=== PATIENT | female | born 1995 | race Caucasian/White ===

== ENCOUNTER 2017-12-08 00:24 | Emergency (ER) | payer OTHER ==
[2017-12-08 00:25] VITALS: BP 131/96
[2017-12-08] MEDS ORDERED: ONDANSETRON 4 MG/2 ML VIAL IVP ONE (00:30)
[2017-12-08] MEDS ORDERED: NS(*) 0.9% 1000 ML BAG 1,000 ML IV ONE (00:30)
--- NOTE | 2017-12-08 00:30 | ER Report ---
History and Physical Time Seen By MD: 00:29 Hx. of Stated Complaint: PT FOUND PASSED OUT AT BAR. PT HAS HX OF DIABETES. HPI/ROS CHIEF COMPLAINT: found unconscious at the bar HISTORY OF PRESENT ILLNESS: This is a 22 year old female. She was brought to the ER by EMS after being found passed out at the bar. She started arousing on the way here. She arrives crying and is not cooperative. She is intoxicated and admits to drinking heavily tonight, but cannot quantify further. She denies any drug use. She has type 2 diabetes and wears an insulin pump an monitor. The monitor reads 271 and finger stick is just over 100. She in unable to give further information. She states that she does not have a headache. She has no pain. She say that she cannot afford to be in the ER. REVIEW OF SYSTEMS: Unable to obtain further due to intoxication Allergies: Coded Allergies: No Known Drug Allergies (Unverified , 12/29/16) Unable To Obtain Past Medical: Unable to Obtain/Update Reviewed Nurses Notes: Yes Constitutional Vital Sign - Last 24 Hours 12/08/17 12/08/17 12/08/17 12/08/17 00:24 00:25 00:29 01:59 Temp 98.2 Pulse 86 109 72 Resp 16 B/P (MAP) 131/96 (108) 131/96 Pulse Ox 91 94 95 96 O2 Delivery Room Air 12/08/17 12/08/17 12/08/17 12/08/17 02:34 02:39 03:09 03:39 Pulse 74 70 100 100 Pulse Ox 95 95 91 90 Physical Exam General Appearance: The patient is alert. Crying and intoxicated. Eyes: Pupils are equal, round. Reactive to light. No pallor or icterus, she does have injection of the sclera. Extraocular movements are intact. Has slight horizontal nystagmus on horizontal gaze. ENT: Mucous membranes are moist. Normal oral mucosa. Posterior oropharynx is normal. Neck: Supple and non tender. No lymphadenopathy. Respiratory: Breathing easily and unlabored. Lungs are clear to auscultation. Cardiovascular: Regular rate and rhythm. No murmurs, gallops or rubs. Normal capillary refill. Gastrointestinal: Abdomen is soft and non tender. Nondistended. Normal active bowel sounds. Neurological: Alert and oriented x3. No focal neurologic deficits other than her intoxication. Skin: Warm and dry. No rashes. Musculoskeletal: Extremities are nontender. Full range of motion. No tenderness in palpation of the cervical, thoracic and lumbar spine. DIFFERENTIAL DIAGNOSIS: After history and physical exam, differential diagnosis was considered for altered mental status that appears to be due to alcohol intoxication, but will look for other metabolic causes and drug use as well. Medical Decision Making Data Points Result Diagram: 12/08/17 0057 12/08/17 0057 Laboratory Hematology Test 12/08/17 00:57 Red Blood Count 4.97 M/uL (4.17-5.56) Mean Corpuscular Volume 84.9 fL (80.0-96.0) Mean Corpuscular Hemoglobin 29.2 pg (26.0-33.0) Mean Corpuscular Hemoglobin Concent 34.4 g/dL (32.0-36.0) Red Cell Distribution Width 12.6 % (11.5-14.5) Mean Platelet Volume 8.3 fL (7.2-11.1) Neutrophils (%) (Auto) 42.7 % (39.4-72.5) Lymphocytes (%) (Auto) 48.7 % (17.6-49.6) Monocytes (%) (Auto) 6.5 % (4.1-12.4) Eosinophils (%) (Auto) 1.4 % (0.4-6.7) Basophils (%) (Auto) 0.7 % (0.3-1.4) Nucleated RBC Relative Count (auto) 0.0 /100WBC Neutrophils # (Auto) 3.5 K/uL (2.0-7.4) Lymphocytes # (Auto) 4.0 K/uL (1.3-3.6) Monocytes # (Auto) 0.5 K/uL (0.3-1.0) Eosinophils # (Auto) 0.1 K/uL (0.0-0.5) Basophils # (Auto) 0.1 K/uL (0.0-0.1) Nucleated RBC Absolute Count (auto) 0.00 K/uL Sodium Level 138 mmol/L (137-145) Potassium Level 3.0 mmol/L (3.5-5.0) Chloride Level 104 mmol/L (98-107) Carbon Dioxide Level 19 mmol/L (22-31) Blood Urea Nitrogen 7 mg/dl (7-18) Creatinine 0.70 mg/dl (0.52-1.04) Glomerular Filtration Rate Calc > 60.0 Random Glucose 157 mg/dl (75-110) Calcium Level 8.7 mg/dl (8.4-10.2) Total Bilirubin 0.3 mg/dl (0.2-1.3) Aspartate Amino Transf (AST/SGOT) 23 U/L (0-35) Alanine Aminotransferase (ALT/SGPT) 38 U/L (0-56) Alkaline Phosphatase 47 U/L (0-126) Total Protein 7.5 gm/dl (6.3-8.2) Albumin 4.1 g/dl (3.5-5.0) Human Chorionic Gonadotropin, Qual Negative (NEGATIVE) Serum Alcohol 276 mg/dl Chemistry Test 12/08/17 00:57 White Blood Count 8.3 k/uL (4.5-11.0) Red Blood Count 4.97 M/uL (4.17-5.56) Hemoglobin 14.5 g/dL (12.0-16.0) Hematocrit 42.2 % (34.0-47.0) Mean Corpuscular Volume 84.9 fL (80.0-96.0) Mean Corpuscular Hemoglobin 29.2 pg (26.0-33.0) Mean Corpuscular Hemoglobin Concent 34.4 g/dL (32.0-36.0) Red Cell Distribution Width 12.6 % (11.5-14.5) Platelet Count 237 K/uL (150-450) Mean Platelet Volume 8.3 fL (7.2-11.1) Neutrophils (%) (Auto) 42.7 % (39.4-72.5) Lymphocytes (%) (Auto) 48.7 % (17.6-49.6) Monocytes (%) (Auto) 6.5 % (4.1-12.4) Eosinophils (%) (Auto) 1.4 % (0.4-6.7) Basophils (%) (Auto) 0.7 % (0.3-1.4) Nucleated RBC Relative Count (auto) 0.0 /100WBC Neutrophils # (Auto) 3.5 K/uL (2.0-7.4) Lymphocytes # (Auto) 4.0 K/uL (1.3-3.6) Monocytes # (Auto) 0.5 K/uL (0.3-1.0) Eosinophils # (Auto) 0.1 K/uL (0.0-0.5) Basophils # (Auto) 0.1 K/uL (0.0-0.1) Nucleated RBC Absolute Count (auto) 0.00 K/uL Glomerular Filtration Rate Calc > 60.0 Calcium Level 8.7 mg/dl (8.4-10.2) Total Bilirubin 0.3 mg/dl (0.2-1.3) Aspartate Amino Transf (AST/SGOT) 23 U/L (0-35) Alanine Aminotransferase (ALT/SGPT) 38 U/L (0-56) Alkaline Phosphatase 47 U/L (0-126) Total Protein 7.5 gm/dl (6.3-8.2) Albumin 4.1 g/dl (3.5-5.0) Human Chorionic Gonadotropin, Qual Negative (NEGATIVE) Serum Alcohol 276 mg/dl Toxicology Test 12/08/17 00:57 Serum Alcohol 276 mg/dl ED Course/Re-evaluation Clinical Indication for ER IV: IV Access ED Course The patient was not cooperative. Very intoxicated. We were able to get an IV started, and labs drawn, but the patient pulled the IV out. She did not get any of the IV fluids that we had started or the Zofran. Alcohol level was very elevated. Other labs unremarkable. Decision to Disposition Date: Dec 08, 2017 Decision to Disposition Time: 04:07 Depart Departure Latest Vital Signs Vital Signs Date Time Temp Pulse Resp B/P (MAP) Pulse Ox O2 Delivery O2 Flow Rate FiO2 12/08/17 03:39 100 90 12/08/17 00:25 98.2 16 131/96 Room Air Impression: Primary Impression: Alcohol intoxication Condition: Improved Disposition: HOME OR SELF-CARE Patient Instructions: Alcohol Intoxication (ED) Additional Instructions: Stop drinking so much that you pass out and cannot take care of yourself. Rest and increase fluid intake today. Problem Qualifiers Primary Impression: Alcohol intoxication Complication of substance-induced condition: uncomplicated Qualified Codes: F10.920 - Alcohol use, unspecified with intoxication, uncomplicated DEANGELO RAZO MD Dec 08, 2017 00:30
[2017-12-08 01:11] LABS: PLATELET COUNT, AUTOMATED 237 K/uL (150-450)
== END 2017-12-08 04:34 | disposition home or self-care (01) ==
LOC: ER 00:27
DX: F10.920 Alcohol use, unspecified with intoxication, uncomplicated (principal)
CPT/HCPCS: 80320; 84703; 85025; 96361; 96374; 99284; J2405; J7030; 82040; 82247; 82310; 82374; 82435; 82565; 82947; 84075; 84132; 84155; 84295; 84450; 84460; 84520

== ENCOUNTER → 2017-12-08 | Outpatient (CLI) | payer OTHER | LOC: AMB 00:05 | PROVIDERS: ATTEND Nurse Practitioner | DX: F10.129 Alcohol abuse with intoxication, unspecified (principal); R11.10 Vomiting, unspecified | CPT/HCPCS: A0425; A0429 ==

== ENCOUNTER 2018-01-03 01:51 | Emergency (ER) | payer OTHER ==
[2018-01-03] MEDS ORDERED: NS(*) 0.9% 1000 ML BAG 1,000 ML IV ONE (01:53)
--- NOTE | 2018-01-03 01:53 | ER Report ---
History and Physical Time Seen By MD: 01:51 HPI/ALLIE CHIEF COMPLAINT: altered mental status HISTORY OF PRESENT ILLNESS: This is a 22 year old female. She was brought to the ER by EMS and [place] [employer] after being altered at a local bar after a concert. Her friends indicated that she had about 8 different drinks tonight. She is an insulin dependent diabetic (type 1). She is combative and otherwise is unable to give no useful information. [employer] indicated that there was another unknown male with her who was going to take her home. Her insulin pump is empty and is not reading. Her blood sugar monitor has readings from 2 days ago. Unknown if there was any other drug or substance use. No report of injuries. REVIEW OF SYSTEMS: Unable to obtain Allergies: Coded Allergies: No Known Drug Allergies (Unverified , 12/29/16) Past Medical/Surgical History Unable to obtain Reviewed Nurses Notes: Yes Old Medical Records Reviewed: Yes (She was here for alcohol intoxication last month. Similar situation, but more combative tonight) Constitutional Vital Sign - Last 24 Hours 01/03/18 01/03/18 01/03/18 01/03/18 02:15 02:30 02:45 03:00 Pulse 107 115 88 81 Pulse Ox 94 94 93 01/03/18 01/03/18 01/03/18 01/03/18 03:09 03:15 03:30 03:45 Pulse 75 73 76 B/P (MAP) 102/61 (75) 96/61 (73) 86/52 (63) 92/54 (67) Pulse Ox 93 92 94 01/03/18 01/03/18 01/03/18 01/03/18 04:00 04:15 04:30 04:45 Pulse 75 77 64 69 B/P (MAP) 99/55 (70) 95/51 (66) 98/60 (73) 86/45 (59) Pulse Ox 94 93 99 95 01/03/18 01/03/18 01/03/18 01/03/18 05:00 05:05 05:15 05:35 Pulse 67 69 68 B/P (MAP) 88/37 (54) 81/39 (53) Pulse Ox 93 94 95 01/03/18 01/03/18 01/03/18 05:40 05:52 05:55 Pulse 72 Resp 14 B/P (MAP) 93/64 (74) 93/57 (69) 98/57 (71) Pulse Ox 94 O2 Delivery Room Air Physical Exam General Appearance: The patient is altered. She is crying and combative. Multiple officers, policyholder information clerk and hospital staff needing to restrain her. Soft restraints employed. Eyes: Pupils equal and round, mild injection. ENT: [Normal oral mucosa.] [Moist mucous membranes.] [Tympanic membranes are normal.] [Neck:] [Neck is supple and non tender.] Respiratory: [Chest is non tender, lungs are clear to auscultation.] Cardiac: [regular rate and rhythm] [ ] Gastrointestinal: [Abdomen is soft and non tender, no masses, bowel sounds normal.] [Musculoskeletal:] [Extremities have full range of motion.] [Non tender.] [Skin:] [No rashes or lesions.] [ ] [DIFFERENTIAL DIAGNOSIS: After history and physical exam differential diagnosis was considered for] [ ] Medical Decision Making Data Points Result Diagram: 01/03/18 0155 01/03/18 0155 Laboratory Hematology Test 01/03/18 01:55 01/03/18 05:13 Red Blood Count 5.26 M/uL (4.17-5.56) Mean Corpuscular Volume 84.9 fL (80.0-96.0) Mean Corpuscular Hemoglobin 29.5 pg (26.0-33.0) Mean Corpuscular Hemoglobin Concent 34.8 g/dL (32.0-36.0) Red Cell Distribution Width 12.8 % (11.5-14.5) Mean Platelet Volume 8.6 fL (7.2-11.1) Neutrophils (%) (Auto) 37.9 % (39.4-72.5) Lymphocytes (%) (Auto) 53.5 % (17.6-49.6) Monocytes (%) (Auto) 7.4 % (4.1-12.4) Eosinophils (%) (Auto) 0.8 % (0.4-6.7) Basophils (%) (Auto) 0.4 % (0.3-1.4) Nucleated RBC Relative Count (auto) 0.1 /100WBC Neutrophils # (Auto) 3.0 K/uL (2.0-7.4) Lymphocytes # (Auto) 4.2 K/uL (1.3-3.6) Monocytes # (Auto) 0.6 K/uL (0.3-1.0) Eosinophils # (Auto) 0.1 K/uL (0.0-0.5) Basophils # (Auto) 0.0 K/uL (0.0-0.1) Nucleated RBC Absolute Count (auto) 0.01 K/uL Sodium Level 143 mmol/L (137-145) Potassium Level 3.6 mmol/L (3.5-5.0) Chloride Level 104 mmol/L (98-107) Carbon Dioxide Level 18 mmol/L (22-31) Blood Urea Nitrogen 7 mg/dl (7-18) Creatinine 0.80 mg/dl (0.52-1.04) Glomerular Filtration Rate Calc > 60.0 Random Glucose 249 mg/dl (75-110) Calcium Level 9.2 mg/dl (8.4-10.2) Magnesium Level 2.1 mg/dl (1.7-2.2) Total Bilirubin 0.4 mg/dl (0.2-1.3) Aspartate Amino Transf (AST/SGOT) 19 U/L (0-35) Alanine Aminotransferase (ALT/SGPT) 25 U/L (0-56) Alkaline Phosphatase 50 U/L (0-126) Total Protein 8.0 gm/dl (6.3-8.2) Albumin 4.5 g/dl (3.5-5.0) Salicylates Level < 10 mg/L Salicylate Last Dose Date unk Acetaminophen Level < 10 ug/ml Serum Alcohol 286 mg/dl Whole Blood Glucose 190 mg/DL (75-110) Chemistry Test 01/03/18 01:55 01/03/18 05:13 White Blood Count 7.9 k/uL (4.5-11.0) Red Blood Count 5.26 M/uL (4.17-5.56) Hemoglobin 15.5 g/dL (12.0-16.0) Hematocrit 44.6 % (34.0-47.0) Mean Corpuscular Volume 84.9 fL (80.0-96.0) Mean Corpuscular Hemoglobin 29.5 pg (26.0-33.0) Mean Corpuscular Hemoglobin Concent 34.8 g/dL (32.0-36.0) Red Cell Distribution Width 12.8 % (11.5-14.5) Platelet Count 255 K/uL (150-450) Mean Platelet Volume 8.6 fL (7.2-11.1) Neutrophils (%) (Auto) 37.9 % (39.4-72.5) Lymphocytes (%) (Auto) 53.5 % (17.6-49.6) Monocytes (%) (Auto) 7.4 % (4.1-12.4) Eosinophils (%) (Auto) 0.8 % (0.4-6.7) Basophils (%) (Auto) 0.4 % (0.3-1.4) Nucleated RBC Relative Count (auto) 0.1 /100WBC Neutrophils # (Auto) 3.0 K/uL (2.0-7.4) Lymphocytes # (Auto) 4.2 K/uL (1.3-3.6) Monocytes # (Auto) 0.6 K/uL (0.3-1.0) Eosinophils # (Auto) 0.1 K/uL (0.0-0.5) Basophils # (Auto) 0.0 K/uL (0.0-0.1) Nucleated RBC Absolute Count (auto) 0.01 K/uL Glomerular Filtration Rate Calc > 60.0 Calcium Level 9.2 mg/dl (8.4-10.2) Magnesium Level 2.1 mg/dl (1.7-2.2) Total Bilirubin 0.4 mg/dl (0.2-1.3) Aspartate Amino Transf (AST/SGOT) 19 U/L (0-35) Alanine Aminotransferase (ALT/SGPT) 25 U/L (0-56) Alkaline Phosphatase 50 U/L (0-126) Total Protein 8.0 gm/dl (6.3-8.2) Albumin 4.5 g/dl (3.5-5.0) Salicylates Level < 10 mg/L Salicylate Last Dose Date unk Acetaminophen Level < 10 ug/ml Serum Alcohol 286 mg/dl Whole Blood Glucose 190 mg/DL (75-110) Toxicology Test 01/03/18 01:55 Salicylates Level < 10 mg/L Salicylate Last Dose Date unk Acetaminophen Level < 10 ug/ml Serum Alcohol 286 mg/dl ED Course/Re-evaluation Clinical Indication for ER IV: Hydration, IV Access ED Course Labs obtained after IV started. Patient was given 1000cc Normal Saline IV and Zofran 4mg IV. Lab results showed an alcohol level of 289. Patient still combative; soft restraints still in use and patient having to be physically restrained by [employer] and staff. Based on danger to self and others, we gave the following medications: Zyprexa 5mg IM, Ativan 1mg IV and Benadryl 25mg IV. The patient finally calmed down and was sleeping for several hours. Eventually awoke. [employer] have been present as she is under a police hold and she will be going with them to custodial. Decision to Disposition Date: Jan 03, 2018 Decision to Disposition Time: 05:51 Depart Departure Latest Vital Signs Vital Signs Date Time Temp Pulse Resp B/P (MAP) Pulse Ox O2 Delivery O2 Flow Rate FiO2 01/03/18 05:55 72 14 98/57 (71) 94 Room Air Impression: Primary Impression: Alcohol intoxication Condition: Improved Disposition: [facility] TO SNF/CORRECTIONAL F Patient Instructions: Alcohol Intoxication (ED) Problem Qualifiers Primary Impression: Alcohol intoxication Complication of substance-induced condition: uncomplicated Qualified Codes: F10.920 - Alcohol use, unspecified with intoxication, uncomplicated DEANGELO RAZO MD Jan 03, 2018 01:53
[2018-01-03] MEDS ORDERED: ONDANSETRON 4 MG/2 ML VIAL IVP ONE (01:55)
[2018-01-03 02:11] LABS: PLATELET COUNT, AUTOMATED 255 K/uL (150-450)
[2018-01-03] MEDS ORDERED: OLANZapine 10 MG VIAL IM ONLY ONE (02:25)
[2018-01-03] MEDS ORDERED: LORazepam 2 MG/ML VIAL IVP ONE (02:25)
[2018-01-03] MEDS ORDERED: WATER STERILE 10 ML VIAL IM ONLY ONE (02:25)
[2018-01-03] MEDS ORDERED: diphenhydrAMINE 50 MG/ML VIAL IVP ONE (02:25)
[2018-01-03 05:55] VITALS: BP 98/57
== END 2018-01-03 06:00 ==
LOC: ER 01:52
DX: F10.920 Alcohol use, unspecified with intoxication, uncomplicated (principal)
CPT/HCPCS: 36416; 80320; 80329; 82948; 83735; 84443; 85025; 96361; 96372; 96374; 96375; 99284; A4216; J1200; J2060; J2405; J3490; J7030; 82040; 82247; 82310; 82374; 82435; 82565; 82947; 84075; 84132; 84155; 84295; 84450; 84460; 84520

== ENCOUNTER → 2018-01-03 | Outpatient (CLI) | payer OTHER | LOC: AMB 01:15 | PROVIDERS: ATTEND Nurse Practitioner | DX: R41.82 Altered mental status, unspecified (principal); E10.8 Type 1 diabetes mellitus with unspecified complications; Z79.4 Long term (current) use of insulin; Z96.41 Presence of insulin pump (external) (internal) | CPT/HCPCS: A0425; A0429 ==

== ENCOUNTER 2018-07-20 02:53 | Emergency (ER) | payer OTHER ==
--- NOTE | 2018-07-20 02:59 | ER Report ---
History and Physical Time Seen By MD: 02:53 (DEANGELO GARCIA MD) Time Seen By MD: 07:10 (HERNANDEZ SUE DO) HPI/ROS CHIEF COMPLAINT: passed out at the bar HISTORY OF PRESENT ILLNESS: This is a 23 year old female. She was brought in by EMS after passing out at the [employer]. Her friend is with her, and states that she suddenly just dropped. She was drinking heavily. She is type 1 diabetic with insulin pump. Blood sugar in the 300s by EMS. The patient is combative. She can be calmed down briefly, but then escalates again. She denies any pain. She denies being short of breath. She denies headache. Unable to obtain further information. REVIEW OF SYSTEMS: Unable to obtain (DEANGELO GARCIA MD) HPI/ROS Please see Dr. Garcia note (HERNANDEZ SUE DO) Allergies: Coded Allergies: No Known Drug Allergies (Unverified , 01/03/18) Home Meds Unable to Obtain Active Prescriptions or Reported Meds Reviewed Nurses Notes: Yes (DEANGELO GARCIA MD) Constitutional Vital Sign - Last 24 Hours 07/20/18 07/20/18 07/20/18 07/20/18 02:53 02:54 03:08 03:23 Temp 97.9 Pulse 122 131 70 Resp 20 B/P (MAP) 139/97 (111) 139/97 Pulse Ox 95 94 91 O2 Delivery Room Air 07/20/18 07/20/18 07/20/18 07/20/18 03:38 03:47 03:52 04:22 Pulse 72 68 68 71 Pulse Ox 89 92 91 07/20/18 07/20/18 07/20/18 07/20/18 04:28 04:33 04:48 05:03 Pulse 71 72 75 71 Pulse Ox 92 92 89 07/20/18 07/20/18 07/20/18 07/20/18 05:18 05:33 05:38 05:43 Pulse 67 83 64 65 B/P (MAP) 123/84 (97) Pulse Ox 93 96 94 96 07/20/18 07/20/18 07/20/18 07/20/18 06:13 06:18 06:33 06:48 Pulse 72 77 77 83 Pulse Ox 93 90 91 91 807/20/18 07/20/18 07/20/18 07:00 07:15 07:30 07:45 Pulse 86 83 88 90 Pulse Ox 90 91 93 93 07/20/18 07:51 B/P (MAP) 102/62 (75) (HERNANDEZ SUE DO) Physical Exam General Appearance: The patient is intoxicated, combative and can be calmed temporarily. No immediate need for airway protection. Eyes: Pupils are equal, round. Reactive to light. No pallor or icterus, but does have some scleral injection. Extraocular movements are intact. ENT: Mucous membranes are moist. Normal oral mucosa. Posterior oropharynx is normal. Neck: Supple and non tender. No lymphadenopathy. Respiratory: Lungs are clear to auscultation. There are no retractions or accessory muscle use. Cardiovascular: Regular rate and rhythm. No murmurs, gallops or rubs. Normal capillary refill. No edema. Gastrointestinal: Abdomen is soft and non tender. Nondistended. Normal active bowel sounds. Neurological: Intoxicated, not able to tell orientation at this time, but does not appear oriented. Moving all extremities without deficits. Combative and having to start soft restraints. Skin: Warm and dry. No rashes. Musculoskeletal: During a calm moment, denies pain with palpation of back and neck. No obvious deformities or injuries. DIFFERENTIAL DIAGNOSIS: After history and physical exam, differential diagnosis was considered for altered mental status and passing out. (DEANGELO GARCIA MD) Physical Exam Please see Dr. Garcia note (HERNANDEZ SUE DO) Medical Decision Making Data Points Result Diagram: 07/20/18 0300 07/20/18 0300 Laboratory Hematology Test 07/20/18 03:00 07/20/18 06:49 07/20/18 08:07 Red Blood Count 5.28 M/uL (4.17-5.56) Mean Corpuscular Volume 86.4 fL (80.0-96.0) Mean Corpuscular Hemoglobin 29.9 pg (26.0-33.0) Mean Corpuscular Hemoglobin Concent 34.7 g/dL (32.0-36.0) Red Cell Distribution Width 12.7 % (11.5-14.5) Mean Platelet Volume 8.7 fL (7.2-11.1) Neutrophils (%) (Auto) 34.9 % (39.4-72.5) Lymphocytes (%) (Auto) 55.6 % (17.6-49.6) Monocytes (%) (Auto) 6.7 % (4.1-12.4) Eosinophils (%) (Auto) 2.2 % (0.4-6.7) Basophils (%) (Auto) 0.6 % (0.3-1.4) Nucleated RBC Relative Count (auto) 0.1 /100WBC Neutrophils # (Auto) 2.3 K/uL (2.0-7.4) Lymphocytes # (Auto) 3.7 K/uL (1.3-3.6) Monocytes # (Auto) 0.4 K/uL (0.3-1.0) Eosinophils # (Auto) 0.1 K/uL (0.0-0.5) Basophils # (Auto) 0.0 K/uL (0.0-0.1) Nucleated RBC Absolute Count (auto) 0.01 K/uL Erythrocyte Sedimentation Rate 14 mm/HOUR (0-20) Sodium Level 143 mmol/L (137-145) Potassium Level 4.1 mmol/L (3.5-5.0) Chloride Level 108 mmol/L (98-107) Carbon Dioxide Level 18 mmol/L (22-31) Blood Urea Nitrogen 11 mg/dl (7-18) Creatinine 0.90 mg/dl (0.52-1.04) Glomerular Filtration Rate Calc > 60.0 Random Glucose 455 mg/dl (75-110) Calcium Level 9.2 mg/dl (8.4-10.2) Total Bilirubin 0.2 mg/dl (0.2-1.3) Aspartate Amino Transf (AST/SGOT) 15 U/L (0-35) Alanine Aminotransferase (ALT/SGPT) 21 U/L (0-56) Alkaline Phosphatase 54 U/L (0-126) Total Protein 7.4 g/dl (6.3-8.2) Albumin 4.4 g/dl (3.5-5.0) Human Chorionic Gonadotropin, Qual Negative (NEGATIVE) Salicylates Level < 10 mg/L Salicylate Last Dose Date unk Acetaminophen Level < 10 ug/ml Serum Alcohol 290 mg/dl Whole Blood Glucose 296 mg/DL (75-110) Urine Color Straw Urine Clarity Clear Urine pH 5.0 pH (4.8-9.5) Urine Specific [place] 1.011 Urine Protein Negative mg/dL (NEGATIVE) Urine Glucose (UA) 500 mg/dL (NEGATIVE) Urine Ketones Negative mg/dL (NEGATIVE) Urine Blood Negative (NEGATIVE) Urine Nitrite Negative (NEGATIVE) Urine Bilirubin Negative (NEGATIVE) Urine Urobilinogen Negative mg/dL (0.2-1.9) Urine Leukocyte Esterase Negative (NEGATIVE) Urine RBC <1 /HPF (0-2/HPF) Urine WBC <1 /HPF (0-5/HPF) Urine Squamous Epithelial Cells Few /LPF (</=FEW) Urine Bacteria Negative /HPF (NONE-FEW) Urine Mucus None /HPF (NONE-FEW) Urine Opiates Screen Negative Urine Barbiturates Screen Negative Ur Tricyclic Antidepressants Screen Negative Urine Phencyclidine Screen Negative Urine Amphetamines Screen Negative Urine Benzodiazepines Screen Negative Urine Cocaine Screen Negative Urine Cannabinoids Screen Negative Chemistry Test 07/20/18 03:00 07/20/18 06:49 07/20/18 08:07 White Blood Count 6.6 k/uL (4.5-11.0) Red Blood Count 5.28 M/uL (4.17-5.56) Hemoglobin 15.8 g/dL (12.0-16.0) Hematocrit 45.6 % (34.0-47.0) Mean Corpuscular Volume 86.4 fL (80.0-96.0) Mean Corpuscular Hemoglobin 29.9 pg (26.0-33.0) Mean Corpuscular Hemoglobin Concent 34.7 g/dL (32.0-36.0) Red Cell Distribution Width 12.7 % (11.5-14.5) Platelet Count 233 K/uL (150-450) Mean Platelet Volume 8.7 fL (7.2-11.1) Neutrophils (%) (Auto) 34.9 % (39.4-72.5) Lymphocytes (%) (Auto) 55.6 % (17.6-49.6) Monocytes (%) (Auto) 6.7 % (4.1-12.4) Eosinophils (%) (Auto) 2.2 % (0.4-6.7) Basophils (%) (Auto) 0.6 % (0.3-1.4) Nucleated RBC Relative Count (auto) 0.1 /100WBC Neutrophils # (Auto) 2.3 K/uL (2.0-7.4) Lymphocytes # (Auto) 3.7 K/uL (1.3-3.6) Monocytes # (Auto) 0.4 K/uL (0.3-1.0) Eosinophils # (Auto) 0.1 K/uL (0.0-0.5) Basophils # (Auto) 0.0 K/uL (0.0-0.1) Nucleated RBC Absolute Count (auto) 0.01 K/uL Erythrocyte Sedimentation Rate 14 mm/HOUR (0-20) Glomerular Filtration Rate Calc > 60.0 Calcium Level 9.2 mg/dl (8.4-10.2) Total Bilirubin 0.2 mg/dl (0.2-1.3) Aspartate Amino Transf (AST/SGOT) 15 U/L (0-35) Alanine Aminotransferase (ALT/SGPT) 21 U/L (0-56) Alkaline Phosphatase 54 U/L (0-126) Total Protein 7.4 g/dl (6.3-8.2) Albumin 4.4 g/dl (3.5-5.0) Human Chorionic Gonadotropin, Qual Negative (NEGATIVE) Salicylates Level < 10 mg/L Salicylate Last Dose Date unk Acetaminophen Level < 10 ug/ml Serum Alcohol 290 mg/dl Whole Blood Glucose 296 mg/DL (75-110) Urine Color Straw Urine Clarity Clear Urine pH 5.0 pH (4.8-9.5) Urine Specific [place] 1.011 Urine Protein Negative mg/dL (NEGATIVE) Urine Glucose (UA) 500 mg/dL (NEGATIVE) Urine Ketones Negative mg/dL (NEGATIVE) Urine Blood Negative (NEGATIVE) Urine Nitrite Negative (NEGATIVE) Urine Bilirubin Negative (NEGATIVE) Urine Urobilinogen Negative mg/dL (0.2-1.9) Urine Leukocyte Esterase Negative (NEGATIVE) Urine RBC <1 /HPF (0-2/HPF) Urine WBC <1 /HPF (0-5/HPF) Urine Squamous Epithelial Cells Few /LPF (</=FEW) Urine Bacteria Negative /HPF (NONE-FEW) Urine Mucus None /HPF (NONE-FEW) Urine Opiates Screen Negative Urine Barbiturates Screen Negative Ur Tricyclic Antidepressants Screen Negative Urine Phencyclidine Screen Negative Urine Amphetamines Screen Negative Urine Benzodiazepines Screen Negative Urine Cocaine Screen Negative Urine Cannabinoids Screen Negative Toxicology Test 07/20/18 03:00 07/20/18 08:07 Salicylates Level < 10 mg/L Salicylate Last Dose Date unk Acetaminophen Level < 10 ug/ml Serum Alcohol 290 mg/dl Urine Opiates Screen Negative Urine Barbiturates Screen Negative Ur Tricyclic Antidepressants Screen Negative Urine Phencyclidine Screen Negative Urine Amphetamines Screen Negative Urine Benzodiazepines Screen Negative Urine Cocaine Screen Negative Urine Cannabinoids Screen Negative Urinalysis Test 07/20/18 08:07 Urine Color Straw Urine Clarity Clear Urine pH 5.0 pH (4.8-9.5) Urine Specific [place] 1.011 Urine Protein Negative mg/dL (NEGATIVE) Urine Glucose (UA) 500 mg/dL (NEGATIVE) Urine Ketones Negative mg/dL (NEGATIVE) Urine Blood Negative (NEGATIVE) Urine Nitrite Negative (NEGATIVE) Urine Bilirubin Negative (NEGATIVE) Urine Urobilinogen Negative mg/dL (0.2-1.9) Urine Leukocyte Esterase Negative (NEGATIVE) Urine RBC <1 /HPF (0-2/HPF) Urine WBC <1 /HPF (0-5/HPF) Urine Squamous Epithelial Cells Few /LPF (</=FEW) Urine Bacteria Negative /HPF (NONE-FEW) Urine Mucus None /HPF (NONE-FEW) (HERNANDEZ SUE DO) EKG/Imaging EKG Interpretation 12 lead EKG: Rhythm: normal sinus rhythm, rate 68 [place]: normal QRS: normal ST segments: normal (DEANGELO GARCIA MD) ED Course/Re-evaluation Clinical Indication for ER IV: IV Access ED Course Patient is more and more combative, and not having a mental state able to make decisions, so we gave Zyprexa 5mg IM and Benadryl 25mg IV. This was able to calm her down significantly, but a second dose of each was needed to get her into a safe place. She is still very irritable and when trying to get imaging, would get riled up and a little more combative. Ativan 0.5mg IV was given. Labs show an alcohol level of 290. Other labs unremarkable other than elevated blood glucose level at 455. It looks like her insulin pump is running at a basal rate of 1.05 units/hr. Last bolus registered at 0945 at approx 6 units. With sugars being elevated, we were going to give a subcutaneous bolus of 6 units and then monitor blood glucose hourly with further adjustments as needed, however, repeat finger stick glucose showed that her glucose had come down to 272 on basal insulin rate, so will just continue to monitor hourly glucoses for now without giving the bolus at this time. (DEANGELO GARCIA MD) ED Course I took over patient care from Dr. Garcia 0700. Imaging returned and was unremarkable. Patient was stable at time of discharge. Decision to Disposition Date: Jul 20, 2018 Decision to Disposition Time: 09:19 (HERNANDEZ SUE DO) Depart Departure Latest Vital Signs Vital Signs Date Time Temp Pulse Resp B/P (MAP) Pulse Ox O2 Delivery O2 Flow Rate FiO2 07/20/18 07:51 102/62 (75) 07/20/18 07:45 90 93 07/20/18 02:54 97.9 20 Room Air (HERNANDEZ SUE DO) Impression: Primary Impression: Alcohol intoxication Additional Impression: Hyperglycemia Condition: Improved Disposition: HOME OR SELF-CARE New Scripts Unable to Obtain Active Prescriptions or Reported Meds Patient Instructions: Alcohol Intoxication (ED), Diabetic Hyperglycemia (ED) Additional Instructions: Please consider alcohol cessation. Please return promptly if you develop worsening abdominal pain, fevers, chills, chest pain, shortness breath Problem Qualifiers DEANGELO GARCIA MD Jul 20, 2018 02:59 HERNANDEZ SUE DO Jul 20, 2018 07:13
[2018-07-20] MEDS ORDERED: NS(*) 0.9% 1000 ML BAG 1,000 ML IV ONE (03:00)
[2018-07-20] MEDS ORDERED: ONDANSETRON 4 MG/2 ML VIAL IVP ONE (03:00)
[2018-07-20] MEDS ORDERED: OLANZapine 10 MG VIAL IM ONLY ONE ×2 (03:10→04:15)
[2018-07-20] MEDS ORDERED: WATER STERILE 10 ML VIAL IM ONLY ONE ×2 (03:10→04:15)
[2018-07-20] MEDS ORDERED: diphenhydrAMINE 50 MG/ML VIAL IVP ONE ×2 (03:10→04:15)
[2018-07-20 03:26] LABS: PLATELET COUNT, AUTOMATED 233 K/uL (150-450)
--- NOTE | 2018-07-20 04:02 | EKG ---
FACILITY: [facility] PATIENT NAME: DEJON HORN : [id number] MR: [id number] V: [id number] EXAM DATE: ORDERING PHYSICIAN: DEANGELO RAZO TECHNOLOGIST: DANIEL Santos Reason : PASSED OUT Blood Pressure : / mmHG Vent. Rate : 068 BPM Atrial Rate : 068 BPM P-R Int : 140 ms QRS Dur : 074 ms QT Int : 440 ms P-R-T Axes : 068 063 047 degrees QTc Int : 467 ms Normal sinus rhythm Normal ECG When compared with ECG of 29-DEC-2016 01:32, Previous ECG has undetermined rhythm, needs review Confirmed by FRANTZ DELEON ([id number]) on 07/20/2018 6:34:41 AM Referred By: Confirmed By:FRANTZ DELEON
[2018-07-20] MEDS ORDERED: LORazepam 2 MG/ML VIAL IVP ONE (05:25)
[2018-07-20] MEDS ORDERED: INSU HUM REG 100 U/ML(ER ONLY) 10 ML VIAL SUBQ ONE (05:35)
--- NOTE | 2018-07-20 06:39 | RADIOLOGY IMAGING REPORT ---
FACILITY: [facility] PATIENT NAME: Chelo Gee : 1995 MR: [id number] V: [id number] EXAM DATE: ORDERING PHYSICIAN: DEANGELO RAZO TECHNOLOGIST: Location: [facility] [place] Patient: Chelo Gee : 1995 Visit/Account:[id number] Date of Sevice: 07/20/2018 INDICATION: passed out. DATE: 07/20/2018 6:35 AM. TECHNIQUE: CHEST SINGLE AP COMPARISON: None FINDINGS: The patient is markedly rotated. The lungs are clear. The right hemidiaphragm is elevated w ith respect to the right. IMPRESSION: The lungs are clear. Report Dictated By: Bhumi Landrum MD at 07/20/2018 6:35 AM Report E-Signed By: Bhumi Landrum MD at 07/20/2018 6:35 AM WSN:[id number]
--- NOTE | 2018-07-20 06:44 | RADIOLOGY IMAGING REPORT ---
FACILITY: [facility] [place] PATIENT NAME: Chelo Gee : 1995 MR: [id number] V: [id number] EXAM DATE: ORDERING PHYSICIAN: DEANGELO RAZO TECHNOLOGIST: Location: [facility] Patient: Chelo Gee : 1995 Visit/Account:[id number] Date of Sevice: 07/20/2018 CT OF THE BRAIN AND CERVICAL SPINE WITHOUT CONTRAST HISTORY: Passed out. PROCEDURE: 3.0 mm contiguous axial sections were performed through the brain AND 2.0 mm axial images were obtained through the cervical spine. Sagittal and coronal reformats were submitted. FINDINGS: BRAIN: Brain and intracranial structures: There is no mass lesion, hemorrhage or acute infarct. Orbits (included portions): Normal. Scalp: Normal. Skull: Normal. Paranasal sinuses and mastoid air cells (included portions): Normal. C-SPINE: Imaging is degraded by motion. Vertebral body heights are maintained. There is no conspicuous fractur e or dislocation. IMPRESSION: Cervical spine imaging degraded by motion but no conspicuous fracture or dislocation. No evidence of acute intracranial abnormality. One of the following dose optimization techniques was utilized in the performance of this exam: Autom ated exposure control; adjustment of the mA and/or kV according to the patient's size; or use of an i terative reconstruction technique. Specific details can be referenced in the facility's radiology C T exam operational policy. Report Dictated By: Bhumi Landrum MD at 07/20/2018 6:36 AM Report E-Signed By: Bhumi Landrum MD at 07/20/2018 6:40 AM WSN:[id number]
--- NOTE | 2018-07-20 06:44 | RADIOLOGY IMAGING REPORT ---
FACILITY: [facility] PATIENT NAME: Chelo Gee : 1995 MR: [id number] V: [id number] EXAM DATE: [id number] ORDERING PHYSICIAN: DEANGELO RAZO TECHNOLOGIST: Location: [facility] Patient: Chelo Gee : 1995 Visit/Account:[id number] Date of Sevice: 07/20/2018 CT OF THE BRAIN AND CERVICAL SPINE WITHOUT CONTRAST HISTORY: Passed out. PROCEDURE: 3.0 mm contiguous axial sections were performed through the brain AND 2.0 mm axial images were obtained through the cervical spine. Sagittal and coronal reformats were submitted. FINDINGS: BRAIN: Brain and intracranial structures: There is no mass lesion, hemorrhage or acute infarct. Orbits (included portions): Normal. Scalp: Normal. Skull: Normal. Paranasal sinuses and mastoid air cells (included portions): Normal. C-SPINE: Imaging is degraded by motion. Vertebral body heights are maintained. There is no conspicuous fractur e or dislocation. IMPRESSION: Cervical spine imaging degraded by motion but no conspicuous fracture or dislocation. No evidence of acute intracranial abnormality. One of the following dose optimization techniques was utilized in the performance of this exam: Autom ated exposure control; adjustment of the mA and/or kV according to the patient's size; or use of an i terative reconstruction technique. Specific details can be referenced in the facility's radiology C T exam operational policy. Report Dictated By: Bhumi Landrum MD at 07/20/2018 6:36 AM Report E-Signed By: Bhumi Landrum MD at 07/20/2018 6:40 AM WSN:[id number]
[2018-07-20 07:51] VITALS: BP 102/62
== END 2018-07-20 09:18 | disposition home or self-care (01) ==
LOC: ER 02:56
DX: E10.65 Type 1 diabetes mellitus with hyperglycemia (principal); F10.920 Alcohol use, unspecified with intoxication, uncomplicated
CPT/HCPCS: 36416; 70450; 71045; 72125; 80305; 80320; 80329; 81001; 82948; 84703; 85025; 85651; 93005; 96361; 96372; 96374; 96375; 96376; 99284; A4216; J1200; J2060; J2405; J3490; J7030; 82040; 82247; 82310; 82374; 82435; 82565; 82947; 84075; 84132; 84155; 84295; 84450; 84460; 84520

== ENCOUNTER → 2018-07-20 | Outpatient (CLI) | payer OTHER | LOC: AMB 02:33 | PROVIDERS: ATTEND Nurse Practitioner | DX: R41.82 Altered mental status, unspecified (principal); R55 Syncope and collapse; F10.121 Alcohol abuse with intoxication delirium; E10.65 Type 1 diabetes mellitus with hyperglycemia; Z96.41 Presence of insulin pump (external) (internal) | CPT/HCPCS: A0425; A0429 ==

== ENCOUNTER 2019-04-17 01:21 | Emergency (ER) | payer OTHER ==
[2019-04-17 01:24] VITALS: BP 123/96
[2019-04-17] MEDS ORDERED: INSULIN PUMP HUMALOG (01:30)
--- NOTE | 2019-04-17 03:33 | ER Report ---
History and Physical Time Seen By MD: 01:24 Hx. of Stated Complaint: pt was passing out at [employer]. states she has had 6 beers since 7pm. HPI/ROS CHIEF COMPLAINT:? Alcohol intoxication,? Hypoglycemia HISTORY OF PRESENT ILLNESS: 24-year-old female brought in by EMS after being found down, apparently passed out secondary to alcohol intoxication. Patient on arrival has slurred speech. Head appears grossly alcohol intoxicated. EMS noted a normal fingerstick sugar. Patient has no apparent head trauma is noted. She is refusing care or interaction. She refused an IV by EMS. REVIEW OF SYSTEMS: Respiratory: No cough, no dyspnea. Cardiovascular: No chest pain, no palpitations. Gastrointestinal: No vomiting, no abdominal pain. Musculoskeletal: No back pain. Allergies: Coded Allergies: No Known Drug Allergies (Unverified , 04/17/19) Home Meds Reported Medications [insulin pump humalog] No Conflict Check 04/17/19 Constitutional Vital Sign - Last 24 Hours 04/17/19 04/17/19 04/17/19 04/17/19 01:24 01:56 02:01 02:06 Temp 98.1 Pulse 93 95 73 75 Resp 16 B/P (MAP) 123/96 Pulse Ox 93 87 90 91 O2 Delivery Room Air 04/17/19 04/17/19 04/17/19 04/17/19 02:11 02:16 02:21 02:26 Pulse 75 68 69 69 Pulse Ox 91 93 93 89 04/17/19 04/17/19 02:31 02:36 Pulse 92 72 Pulse Ox 91 88 Physical Exam Vital signs stable, afebrile, pulse ox normal General Appearance: The patient is alert, has no immediate need for airway protection and no current signs of toxicity., Heavy odor of EtOH, slurred speech, clinical presentation consistent with gross alcohol intoxication. Palpation of the head and neck reveal no tenderness or trauma HEENT: Pupils equal and round no injection. TMs normal, oropharynx without redness or exudate Respiratory: Chest is non tender, lungs are clear to auscultation. No chest wall tenderness Cardiac: regular rate and rhythm Gastrointestinal: Abdomen is soft and non tender, no masses, bowel sounds normal. Musculoskeletal: Neck: Neck is supple and non tender. No meningismus Extremities have full range of motion and are non tender. Skin: No rashes or lesions. DIFFERENTIAL DIAGNOSIS: After history and physical exam differential diagnosis was considered for altered mental status including but not limited to hypoglycemia, infectious process, electrolyte abnormality, head injury and intoxicants. Medical Decision Making ED Course/Re-evaluation ED Course Patient was minute to an examination room. H&P was done. The differential diagnosis was considered. Patient brought in by EMS grossly alcohol i ntoxicated, found down outside of proximal he's bar. There was some concerns for hypoglycemia. EMS checked a normal sugar. Patient is refusing all care intervention. She is allowed to rest in the ER bed and monitored for deterioration. On conical examination. There is no signs of head trauma or any trauma noted. Patient's discharged to a sober friend. After observation of a pproximately 2 hours. She did suffer some vomiting after being in the ER for 2 hours. She did get up and move around and began vomiting. She was treated with Zofran 8 mg sublingual. Decision to Disposition Date: April 17, 2019 Decision to Disposition Time: 03:32 Depart Departure Latest Vital Signs Vital Signs Date Time Temp Pulse Resp B/P (MAP) Pulse Ox O2 Delivery O2 Flow Rate FiO2 04/17/19 02:36 72 88 04/17/19 01:24 98.1 16 123/96 Room Air Impression: Primary Impression: Alcohol intoxication Condition: Improved Disposition: HOME OR SELF-CARE Patient Instructions: Alcohol Intoxication (ED) Additional Instructions: Take caution when drinking to excess Problem Qualifiers Primary Impression: Alcohol intoxication Complication of substance-induced condition: uncomplicated Qualified Codes: F10.920 - Alcohol use, unspecified with intoxication, uncomplicated NGA ROBLES DO April 17, 2019 03:33
[2019-04-17] MEDS ORDERED: ONDANSETRON 4 MG ODT TABDP SL ONE (03:35)
== END 2019-04-17 03:40 | disposition home or self-care (01) ==
LOC: MERGE 01:45 → ER 01:45
DX: F10.920 Alcohol use, unspecified with intoxication, uncomplicated (principal)
CPT/HCPCS: 99282; S0119

== ENCOUNTER → 2019-04-17 | Outpatient (CLI) | payer OTHER ==
[~2019-04-17] MED LIST: INSULIN PUMP HUMALOG
== END ==
LOC: AMB 01:02
PROVIDERS: ATTEND Nurse Practitioner
DX: R40.4 Transient alteration of awareness (principal); F10.120 Alcohol abuse with intoxication, uncomplicated; E10.9 Type 1 diabetes mellitus without complications
CPT/HCPCS: A0425; A0429